=== PATIENT | male | born 1975 | race Caucasian/White ===

== ENCOUNTER 2017-12-09 09:31 | Emergency (ER) | payer OTHER ==
[~2017-12-09] VITALS: Ht 177.8 cm; Wt 93.4 kg
[2017-12-09] MEDS ORDERED: IV NORMAL SALINE 1,000ML 1,000 ML IV SCH (09:43)
[2017-12-09 10:11] LABS: BASO % 0 % (0-3); EOS % 0 % (0-3); HEMATOCRIT 44.5 % (39.0-53.0); HEMOGLOBIN 15.4 g/dL (13.0-17.5); LYMPH % 7 % (24-48); MEAN CORPUSCULAR HEMOGLOBIN 32 pg (25-35); MEAN CORPUSCULAR HGB CONC 35 g/dL (31-37); MEAN CORPUSCULAR VOLUME 93 fL (79-100); MONO # 1.2 x10^3/uL (0.0-1.1); MONO % 9 % (0-9); NEUT % 83 % (31-73); PLATELET COUNT 208 x10^3/uL (140-400); RED BLOOD COUNT 4.77 x10^6/uL (4.30-5.70); RED CELL DISTRIBUTION WIDTH 13.5 % (11.5-14.5); WHITE BLOOD COUNT 13.3 x10^3/uL (4.0-11.0)
[2017-12-09] MEDS ORDERED: IOHEXOL 300 MG/ML 75 ML VIAL. IV ONE (10:15)
[2017-12-09] MEDS ORDERED: KETOROLAC 30 MG/ML VIAL. IV ONE (10:20)
[2017-12-09 10:24] LABS: ALBUMIN 3.6 g/dL (3.4-5.0); CALCIUM 8.6 mg/dL (8.5-10.1); CREATININE 1.2 mg/dL (0.7-1.3); GFR 66.1; POTASSIUM 3.7 mmol/L (3.5-5.1); TOTAL BILIRUBIN 1.9 mg/dL (0.2-1.0); TOTAL PROTEIN 7.3 g/dL (6.4-8.2)
--- NOTE | 2017-12-09 10:26 | RAD ---
CT Abdomen and Pelvis With Intravenous Contrast: History: Periumbilical abdominal pain for 2 days. Nausea today. Comparison: None. Technique: After administration of intravenous contrast, 75 mL Omnipaque-300, CT of the abdomen and pelvis was performed. Exposure: One or more of the following individualized dose reduction techniques were utilized for this examination: 1. Automated exposure control 2. Adjustment of the mA and/or kV according to patient size 3. Use of iterative reconstruction technique Findings: Evaluation of enteric structures may be limited by lack of oral contrast. Liver, spleen, pancreas, gallbladder, and bilateral adrenal glands are unremarkable. Bilateral kidneys enhance symmetrically. Minimal calcified aortic atherosclerosis is present. No small bowel obstruction is identified. The appendix is without evidence of inflammation. Colonic diverticulosis is noted, especially in sigmoid colon. There is inflammatory change involving the mid sigmoid colon, compatible with acute diverticulitis. Mild amount scattered free fluid is seen in the pelvis. No pneumoperitoneum to suggest perforation is identified. No focal, well-defined fluid collection is seen to suggest abscess. There is inflammatory change extending to involve the dome of the urinary bladder. No convincing evidence of colovesical fistula is identified. Impression: 1. Acute diverticulitis. No perforation or abscess is seen. 2. There is inflammatory change involving the dome of the urinary bladder, thought to be secondarily inflamed from the adjacent acute diverticulitis. No convincing CT evidence of colovesical fistula is identified, but recommend correlation with any symptoms of hematuria or fecaluria. Electronically signed by: Alberto Lindsay MD (12/09/2017 10:22 AM) [facility]
[2017-12-09 11:04] LABS: BACTERIA,URINE 0 /HPF (0-FEW); BILIRUBIN,URINE NEG (NEG); CLARITY,URINE CLEAR; COLOR,URINE YELLOW; GLUCOSE,URINE NEG (NEG); NITRITE,URINE NEG (NEG); RBC,URINE OCC /HPF (0-2); SQUAMOUS EPITHELIAL CELL,UR OCC /LPF; UROBILINOGEN,URINE 0.2 mg/dL (0.2 mg/dL); WBC,URINE 0 /HPF (0-4)
[2017-12-09] MEDS ORDERED: CIPROFLOXACIN 400MG PREMIX 200 ML IV ONE (11:30)
[2017-12-09] MEDS ORDERED: HYDR-971 PO (11:57)
[2017-12-09] MEDS ORDERED: CIPR500T94 PO (11:57)
[2017-12-09] MEDS ORDERED: METR500T PO (11:57)
--- NOTE | 2017-12-09 11:57 | PHYS DOC ---
Past History Past Medical History: Anxiety Past Surgical History: Tonsillectomy Alcohol Use: Occasionally Drug Use: None Adult General Chief Complaint Chief Complaint: GI PROBLEM HPI HPI 42-year-old male patient complaining of constant lower abdominal pain as an aching and sharp pain for the last 4 days that gradually getting worse with intermittent episodes of nausea and anorexia without fever and chills, diarrhea and constipation, urinary symptoms, history of the same pain. Patient had a bowel movement this morning without change of his pain. Patient was seen by his primary care physician office today and had a shot of Nubain and Phenergan and sent to ER for evaluation. Patient rated his pain 7/10. Review of Systems Review of Systems Constitutional: Denies fever or chills [] Eyes: Denies change in visual acuity, redness, or eye pain [] HENT: Denies nasal congestion or sore throat [] Respiratory: Denies cough or shortness of breath [] Cardiovascular: No additional information not addressed in HPI [] GI: Reports abdominal pain, nausea, denies vomiting, bloody stools or diarrhea [ ] : Denies dysuria or hematuria [] Musculoskeletal: Denies back pain or joint pain [] Integument: Denies rash or skin lesions [] Neurologic: Denies headache, focal weakness or sensory changes [] Endocrine: Denies polyuria or polydipsia [] All other systems were reviewed and found to be within normal limits, except as documented in this note. Current Medications Current Medications Current Medications Medications (Trade) Dose Ordered Sig/Maggie Start Time Stop Time Status Last Admin Dose Admin Ciprofloxacin Lactate 200 ml @ 200 mls/hr 1X ONCE 12/09/17 11:30 12/09/17 12:29 12/09/17 11:21 200 MLS/HR Iohexol (Omnipaque 300 Mg/ml) 75 ml 1X ONCE 12/09/17 10:15 12/09/17 10:16 DC 12/09/17 10:03 75 ML Ketorolac Tromethamine (Toradol) 30 mg 1X ONCE 12/09/17 10:20 12/09/17 10:21 DC 12/09/17 09:59 30 MG Metronidazole 100 ml @ 100 mls/hr 1X ONCE 12/09/17 11:30 12/09/17 12:29 12/09/17 11:21 100 MLS/HR Sodium Chloride 1,000 ml @ 1,000 mls/hr Q1H 12/09/17 09:43 12/09/17 10:42 DC 12/09/17 09:59 1,000 MLS/HR Allergies Allergies Allergies Coded Allergies Type Severity Reaction Last Updated Verified No Known Drug Allergies 12/09/17 No Physical Exam Physical Exam Constitutional: Well developed, well nourished, mild distress, non-toxic appearance. [] HENT: Normocephalic, atraumatic, oropharynx moist, no oral exudates, nose normal. [] Eyes: PERRLA, EOMI, conjunctiva normal, no discharge. [] Neck: Normal range of motion, no tenderness, supple, no stridor. [] Cardiovascular:Heart rate regular rhythm, no murmur [] Lungs & Thorax: Bilateral breath sounds clear to auscultation [] Abdomen: Mildly distended with gas, Bowel sounds normal, soft, suprapubic and right lower and left lower quadrant tenderness and guarding, no masses, no pulsatile masses. [] Skin: Warm, dry, no erythema, no rash. [] Back: No tenderness, no CVA tenderness. [] Extremities: No tenderness, no cyanosis, no clubbing, ROM intact, no edema. [] Neurologic: Alert and oriented X 3, normal motor function, normal sensory function, no focal deficits noted. [] Psychologic: Affect normal, judgement normal, mood normal. [] Current Patient Data Vital Signs Vital Signs Date Time Temp Pulse Resp B/P (MAP) Pulse Ox O2 Delivery O2 Flow Rate FiO2 12/09/17 09:50 98.8 86 22 98 Room Air Lab Results Laboratory Tests Test 12/09/17 09:50 12/09/17 10:45 White Blood Count 13.3 x10^3/uL (4.0-11.0) H Red Blood Count 4.77 x10^6/uL (4.30-5.70) Hemoglobin 15.4 g/dL (13.0-17.5) Hematocrit 44.5 % (39.0-53.0) Mean Corpuscular Volume 93 fL (79-100) Mean Corpuscular Hemoglobin 32 pg (25-35) Mean Corpuscular Hemoglobin Concent 35 g/dL (31-37) Red Cell Distribution Width 13.5 % (11.5-14.5) Platelet Count 208 x10^3/uL (140-400) Neutrophils (%) (Auto) 83 % (31-73) H Lymphocytes (%) (Auto) 7 % (24-48) L Monocytes (%) (Auto) 9 % (0-9) Eosinophils (%) (Auto) 0 % (0-3) Basophils (%) (Auto) 0 % (0-3) Neutrophils # (Auto) 11.0 x10^3uL (1.8-7.7) H Lymphocytes # (Auto) 1.0 x10^3/uL (1.0-4.8) Monocytes # (Auto) 1.2 x10^3/uL (0.0-1.1) H Eosinophils # (Auto) 0.0 x10^3/uL (0.0-0.7) Basophils # (Auto) 0.0 x10^3/uL (0.0-0.2) Sodium Level 139 mmol/L (136-145) Potassium Level 3.7 mmol/L (3.5-5.1) Chloride Level 103 mmol/L (98-107) Carbon Dioxide Level 27 mmol/L (21-32) Anion Gap 9 (6-14) Blood Urea Nitrogen 13 mg/dL (8-26) Creatinine 1.2 mg/dL (0.7-1.3) Estimated GFR (Cockcroft-Gault) 66.1 BUN/Creatinine Ratio 11 (6-20) Glucose Level 108 mg/dL (70-99) H Calcium Level 8.6 mg/dL (8.5-10.1) Total Bilirubin 1.9 mg/dL (0.2-1.0) H Aspartate Amino Transferase (AST) 22 U/L (15-37) Alanine Aminotransferase (ALT) 27 U/L (16-63) Alkaline Phosphatase 80 U/L (46-116) Total Protein 7.3 g/dL (6.4-8.2) Albumin 3.6 g/dL (3.4-5.0) Albumin/Globulin Ratio 1.0 (1.0-1.7) Lipase 164 U/L (73-393) Urine Collection Type Unknown Urine Color Yellow Urine Clarity Clear Urine pH 6.5 Urine Specific [place] 1.010 Urine Protein 30 mg/dl (NEG-TRACE) Urine Glucose (UA) Neg mg/dL (NEG) Urine Ketones (Stick) Neg mg/dL (NEG) Urine Blood Trace (NEG) Urine Nitrite Neg (NEG) Urine Bilirubin Neg (NEG) Urine Urobilinogen Dipstick 0.2 mg/dL (0.2 mg/dL) Urine Leukocyte Esterase Neg (NEG) Urine RBC Occ /HPF (0-2) Urine WBC 0 /HPF (0-4) Urine Squamous Epithelial Cells Occ /LPF Urine Bacteria 0 /HPF (0-FEW) EKG EKG [] Radiology/Procedures Radiology/Procedures [][address] [address] IMAGING REPORT Signed PATIENT: CUONG MAO ACCOUNT: [id number] : 1975 LOCATION: ER AGE: 42 SEX: M EXAM STATUS: REG ER ORD. PHYSICIAN: MARK CAPONE MD REASON: lower abdominal pain PROCEDURE: CT ABD PELV W/ IV CONTRST ONLY CT Abdomen and Pelvis With Intravenous Contrast: History: Periumbilical abdominal pain for 2 days. Nausea today. Comparison: None. Technique: After administration of intravenous contrast, 75 mL Omnipaque-300, CT of the abdomen and pelvis was performed. Exposure: One or more of the following individualized dose reduction techniques were utilized for this examination: 1. Automated exposure control 2. Adjustment of the mA and/or kV according to patient size 3. Use of iterative reconstruction technique Findings: Evaluation of enteric structures may be limited by lack of oral contrast. Liver, spleen, pancreas, gallbladder, and bilateral adrenal glands are unremarkable. Bilateral kidneys enhance symmetrically. Minimal calcified aortic atherosclerosis is present. No small bowel obstruction is identified. The appendix is without evidence of inflammation. Colonic diverticulosis is noted, especially in sigmoid colon. There is inflammatory change involving the mid sigmoid colon, compatible with acute diverticulitis. Mild amount scattered free fluid is seen in the pelvis. No pneumoperitoneum to suggest perforation is identified. No focal, well-defined fluid collection is seen to suggest abscess. There is inflammatory change extending to involve the dome of the urinary bladder. No convincing evidence of colovesical fistula is identified. Impression: 1. Acute diverticulitis. No perforation or abscess is seen. 2. There is inflammatory change involving the dome of the urinary bladder, thought to be secondarily inflamed from the adjacent acute diverticulitis. No convincing CT evidence of colovesical fistula is identified, but recommend correlation with any symptoms of hematuria or fecaluria. Electronically signed by: Alberto Morris MD (12/09/2017 10:22 AM) [facility] DICTATED AND SIGNED BY: ALBERTO MORRIS MD DATE: 12/09/17 1016 CC: JORGE L VILLALOBOS MD; MARK CAPONE MD ~ Course & Med Decision Making Course & Med Decision Making Pertinent Labs and Imaging studies reviewed. (See chart for details) Evaluation of patient in ER showed 41-year-old male patient with complaining of left thumb pain for 4 days. Patient had lower abdominal tenderness with marked leukocytosis. CT of abdomen and pelvis showed acute diverticulitis without perforation or abscess. Patient didn't want hospitalization and was to try outpatient treatment. Patient treated with IV fluid and Zofran and Toradol and felt better. Patient had a dose of Flagyl and Cipro IV in ER and tolerated oral intake. Recheck Gabino informed at 1101 and agreed with plan of care. Patient and his family informed to return to ER if develops severe abdominal pain, fever, vomiting and not able to take medication or worsening condition. [] Dragon Disclaimer Dragon Disclaimer This electronic medical record was generated, in whole or in part, using a voice recognition dictation system. Departure Departure: Impression: Primary Impression: Acute diverticulitis Additional Impressions: Hyperbilirubinemia Abdominal pain Disposition: HOME, SELF-CARE (at 1200) Condition: IMPROVED Referrals: JORGE L VILLALOBOS MD (PCP) Patient Instructions: Diverticulitis Additional Instructions: Drink plenty of liquids Follow-up with your primary care physician tomorrow morning Return to ER if not getting better Take liquid diet only, no solid food Scripts Hydrocodone Bit/Acetaminophen (NORCO 5-325 TABLET) 1 Each Tablet 1 TAB PO PRN Q6HRS PRN for PAIN, #14 TAB 0 Refills Prov: MARK CAPONE MD 12/09/17 Ciprofloxacin Hcl (CIPRO) 500 Mg Tablet 1 TAB PO BID, #14 TAB Prov: MARK CAPONE MD 12/09/17 Metronidazole (FLAGYL) 500 Mg Tablet 1 TAB PO Q8HRS, #21 TAB Prov: MARK CAPONE MD 12/09/17 Problem Qualifiers MARK CAPONE MD Dec 09, 2017 11:57
[2017-12-09 13:15] VITALS: BP 129/85
[2017-12-09] MEDS ORDERED: METR500T8 PO (18:44)
[2017-12-09] MEDS ORDERED: CIPR500T PO (18:44)
[2017-12-09] MEDS ORDERED: HYDR-2758 PO (18:44)
--- NOTE | 2017-12-10 19:35 | HP ---
ADMIT DATE: 12/09/2017 HISTORY OF PRESENT ILLNESS: A 42-year-old gentleman came in initially through the Emergency Room with left lower quadrant pain for the last 4 days, gradually getting worse. The patient was seen in the Emergency Room for he had diverticulitis; however, the patient got a shot of Nubain, Phenergan, and was discharged home per his request. He refused to be admitted to the hospital. He wanted to try it as an outpatient. He was given oral antibiotics with metronidazole and Cipro. The patient, however, later in the day, the called and said he was spiking temperatures up to 102-1/2 with more severe pain. He was admitted to the hospital for IV antibiotic therapy and further evaluation of his diverticulitis. The patient had been tried as an outpatient per his own request taking a risk as noted. PAST MEDICAL HISTORY: Anxiety, tonsillectomy. SOCIAL HISTORY: The patient denies smoking. Occasional alcohol use. Otherwise, unremarkable. FAMILY HISTORY: Noncontributory. IMMUNIZATIONS: The patient's otherwise immunization of influenza is up-to-date. ALLERGIES: Her has no known drug allergies. HOME MEDICATIONS: He was taking no medication prior to his seen in the Emergency Room where he was started on a course of metronidazole and the Levaquin or Cipro that is. REVIEW OF SYSTEMS: The patient had fever, chills, some mild nausea, but no vomiting. The patient had severe problems with pain in the left lower quadrant area. As a result of this, the patient was admitted to the hospital for further evaluation and treatment. PHYSICAL EXAMINATION: VITAL SIGNS: The patient's initial temperature was 100.3 with a pulse of 90, respiratory rate 20, blood pressure 115/60 with temperature of 100.3. HEENT: The patient's head was atraumatic, normocephalic. Eyes: PERRLA without jaundice. The mouth and throat were normal. NECK: Supple, no JVD or thyromegaly. LUNGS: Are diminished throughout, but basically clear. CARDIOVASCULAR: Regular sinus rhythm, S1, S2, without murmur, rub, thrill, or extra heart sounds. ABDOMEN: Soft overall, but there was marked tenderness in that left lower quadrant area where the patient had the diverticulitis. There was no perforation or abscess seen. ASSESSMENT AND PLAN: The patient showed some inflammation of the dome of the urinary bladder, thought secondary to the adjacent diverticulitis. The patient will be placed on IV antibiotic therapy. He made very poor progress with the metronidazole and Cipro. He was switched over to Levaquin and piperacillin, per pharmacy because he actually did not make any progress and regressed with the IV Cipro and metronidazole. The patient will be monitored carefully, make further evaluation. Abdominal series is being entertained because of the increased pain, may need to repeat the CT scan or even surgical intervention. JORGE L VILLALOBOS MD DR: ANTONIO/heidi JOB#: [id number] / [id number]
== END 2017-12-09 13:30 | disposition home or self-care (01) ==
LOC: ER 09:31
DX: K57.32 Diverticulitis of large intestine without perforation or abscess without bleeding (principal); E80.6 Other disorders of bilirubin metabolism; F41.9 Anxiety disorder, unspecified
CPT/HCPCS: 36415; 74177; 80053; 81001; 83690; 85025; 96365; 96368; 96375; 99285; J0744; J1885; J3490; Q9967; J7030

== ENCOUNTER 2017-12-09 18:25 | Inpatient (IN) | payer OTHER ==
[~2017-12-09] VITALS: Ht 177.8 cm; Wt 94.0 kg
[~2017-12-09 18:25] MED LIST: CIPR500T94 PO; HYDR-971 PO; METR500T PO
[2017-12-09] MEDS ORDERED: CIPR500T PO (18:44)
[2017-12-09] MEDS ORDERED: METR500T8 PO (18:44)
[2017-12-09] MEDS ORDERED: HYDR-2758 PO (18:44)
[2017-12-09] MEDS ORDERED: ZOLPIDEM 5 MG TABLET. PO PRN (18:45)
[2017-12-09] MEDS ORDERED: ONDANSETRON ODT 4 MG TAB.RAPDIS PO PRN (18:45)
[2017-12-09 18:46] VITALS: BP 113/68
[2017-12-09] MEDS: MORPHINE SULFATE 2 MG/ML DISP.SYRIN. IV PRN (20:35)
[2017-12-09] MEDS: CIPROFLOXACIN 400MG PREMIX 200 ML IV SCH (21:49)
[2017-12-09 23:06] VITALS: BP 105/65
[2017-12-10] MEDS: MORPHINE SULFATE 2 MG/ML DISP.SYRIN. IV PRN ×6 (00:33→21:31)
[2017-12-10 05:23] VITALS: BP 107/67
[2017-12-10 06:20] LABS: BASO % 0 % (0-3); EOS # 0.1 x10^3/uL (0.0-0.7); EOS % 1 % (0-3); HEMATOCRIT 38.6 % (39.0-53.0); HEMOGLOBIN 13.4 g/dL (13.0-17.5); LYMPH # 1.4 x10^3/uL (1.0-4.8); LYMPH % 15 % (24-48); MEAN CORPUSCULAR HEMOGLOBIN 33 pg (25-35); MEAN CORPUSCULAR HGB CONC 35 g/dL (31-37); MEAN CORPUSCULAR VOLUME 94 fL (79-100); MONO % 11 % (0-9); NEUT # 7.2 x10^3uL (1.8-7.7); NEUT % 74 % (31-73); PLATELET COUNT 181 x10^3/uL (140-400); RED CELL DISTRIBUTION WIDTH 13.4 % (11.5-14.5); WHITE BLOOD COUNT 9.7 x10^3/uL (4.0-11.0)
[2017-12-10 06:22] LABS: CALCIUM 8.4 mg/dL (8.5-10.1); CREATININE 1.1 mg/dL (0.7-1.3); GFR 73.1; POTASSIUM 3.6 mmol/L (3.5-5.1)
[2017-12-10] MEDS: CIPROFLOXACIN 400MG PREMIX 200 ML IV SCH (08:49)
[2017-12-10 10:31] VITALS: BP 108/65
[2017-12-10 15:32] VITALS: BP 114/65
[2017-12-10 15:37] VITALS: BP 108/67
[2017-12-10] MEDS ORDERED: SIMETHICONE 80 MG TAB.CHEW PO PRN (16:45)
[2017-12-10] MEDS ORDERED: PIPERACILLIN/TAZOBACTAM 3.375 GM in IV NORMAL SALINE 50ML 50 ML IV SCH (18:00)
[2017-12-10] MEDS ORDERED: PIP/TAZO PER PHARMACY MC PRN (18:00)
[2017-12-10 19:29] VITALS: BP 108/69
--- NOTE | 2017-12-10 20:55 | RAD ---
Acute Abdominal Series: Technique: PA view of the chest and supine and upright views of the abdomen were obtained. History: Pain. Comparison: None. Findings: There is linear opacities in the lung bases. There is multiple dilated air-filled loops of small bowel. There is air and stool scattered throughout the colon. There is no free air. Impression: 1. Abnormal bowel gas pattern is consistent with a mid partial small bowel obstruction. 2. Mild basilar pulmonary infiltrates likely discoid atelectasis. Electronically signed by: Mookie Jensen III, MD (12/10/2017 8:49 PM) [facility]
[2017-12-10] MEDS ORDERED: LACTOBACILLUS RHAMNOSUS GG 1 CAPSULE. PO SCH (21:00)
[2017-12-10] MEDS ORDERED: PROCHLORPERAZINE 5 MG TABLET. PO PRN (21:15)
[2017-12-10] MEDS ORDERED: PROCHLORPERAZINE 10 MG/2 ML VIAL. IV PRN (21:15)
[2017-12-10 21:35] VITALS: BP 120/76
[2017-12-10 21:39] LABS: RED BLOOD COUNT 4.46 x10^6/uL (4.30-5.70); WHITE BLOOD COUNT 9.6 x10^3/uL (4.0-11.0)
[2017-12-10 21:40] LABS: BASO % 0 % (0-3); EOS % 1 % (0-3); HEMATOCRIT 42.1 % (39.0-53.0); HEMOGLOBIN 14.5 g/dL (13.0-17.5); LYMPH % 11 % (24-48); MEAN CORPUSCULAR HEMOGLOBIN 33 pg (25-35); MEAN CORPUSCULAR HGB CONC 34 g/dL (31-37); MEAN CORPUSCULAR VOLUME 94 fL (79-100); MONO # 0.6 x10^3/uL (0.0-1.1); MONO % 6 % (0-9); NEUT % 83 % (31-73); PLATELET COUNT 220 x10^3/uL (140-400); RED CELL DISTRIBUTION WIDTH 13.6 % (11.5-14.5)
--- NOTE | 2017-12-11 13:21 | HP ---
ADMIT DATE: 12/09/2017 HISTORY OF PRESENT ILLNESS: A 42-year-old gentleman came in initially through the Emergency Room with left lower quadrant pain for the last 4 days, gradually getting worse. The patient was seen in the Emergency Room for he had diverticulitis; however, the patient got a shot of Nubain, Phenergan, and was discharged home per his request. He refused to be admitted to the hospital. He wanted to try it as an outpatient. He was given oral antibiotics with metronidazole and Cipro. The patient, however, later in the day, the called and said he was spiking temperatures up to 102-1/2 with more severe pain. He was admitted to the hospital for IV antibiotic therapy and further evaluation of his diverticulitis. The patient had been tried as an outpatient per his own request taking a risk as noted. PAST MEDICAL HISTORY: Anxiety, tonsillectomy. SOCIAL HISTORY: The patient denies smoking. Occasional alcohol use. Otherwise, unremarkable. FAMILY HISTORY: Noncontributory. IMMUNIZATIONS: The patient's otherwise immunization of influenza is up-to-date. ALLERGIES: Her has no known drug allergies. HOME MEDICATIONS: He was taking no medication prior to his seen in the Emergency Room where he was started on a course of metronidazole and the Levaquin or Cipro that is. REVIEW OF SYSTEMS: The patient had fever, chills, some mild nausea, but no vomiting. The patient had severe problems with pain in the left lower quadrant area. As a result of this, the patient was admitted to the hospital for further evaluation and treatment. PHYSICAL EXAMINATION: VITAL SIGNS: The patient's initial temperature was 100.3 with a pulse of 90, respiratory rate 20, blood pressure 115/60 with temperature of 100.3. HEENT: The patient's head was atraumatic, normocephalic. Eyes: PERRLA without jaundice. The mouth and throat were normal. NECK: Supple, no JVD or thyromegaly. LUNGS: Are diminished throughout, but basically clear. CARDIOVASCULAR: Regular sinus rhythm, S1, S2, without murmur, rub, thrill, or extra heart sounds. ABDOMEN: Soft overall, but there was marked tenderness in that left lower quadrant area where the patient had the diverticulitis. There was no perforation or abscess seen. ASSESSMENT AND PLAN: The patient showed some inflammation of the dome of the urinary bladder, thought secondary to the adjacent diverticulitis. The patient will be placed on IV antibiotic therapy. He made very poor progress with the metronidazole and Cipro. He was switched over to Levaquin and piperacillin, per pharmacy because he actually did not make any progress and regressed with the IV Cipro and metronidazole. The patient will be monitored carefully, make further evaluation. Abdominal series is being entertained because of the increased pain, may need to repeat the CT scan or even surgical intervention. JORGE L VILLALOBOS MD DR: ANTONIO/heidi JOB#: [id number] / [id number]
== END 2017-12-10 22:21 | disposition short-term general hospital (02) | DRG 392 ==
LOC: 1 SOUTH 18:25
PROVIDERS: ADMIT Family Medicine; ATTEND Family Medicine
DX: K57.92 Diverticulitis of intestine, part unspecified, without perforation or abscess without bleeding (principal); F41.9 Anxiety disorder, unspecified; Z90.49 Acquired absence of other specified parts of digestive tract
CPT/HCPCS: 36415; 74022; 80048; 85025; 99406; J0744; J0780; J1956; J2270; J2543; J3490; Q0162